=== PATIENT | female | born 1980 | race African-American/Black ===

== ENCOUNTER 2018-12-28 20:09 | Emergency (ER) | payer OTHER ==
[~2018-12-28] VITALS: Ht 170.2 cm; Wt 95.3 kg
--- OUTSIDE RECORDS SUMMARY | 2018-12-28 20:12 | XMS REPORT | Summary of Care ---
Author Author [facility] Organization [facility] Address Unknown Phone Unavailable Encounter ALMA Díaz(KIMANI) [id number] Date(s): 12/08/18 - 12/08/18 [facility] [address] [place] [address] [phone] Discharge Disposition: Home or Self Care Attending Physician: Mary Jo Alcocer MD Vital Signs Most recent to 1 oldest [Reference Range]: Height 170.18 cm (12/08/18 1:24 PM) Temperature Oral 98.4 DegF [96.4-99.1 DegF] (12/08/18 1:24 PM) Blood Pressure 95/67 mmHg [90-140/60-90 mmHg] (12/08/18 1:24 PM) Peripheral Pulse 80 bpm Rate [60-100 bpm] (12/08/18 1:24 PM) Weight 92.386 kg (12/08/18 1:24 PM) Body Mass Index 31.9 m2 (12/08/18 1:24 PM) Problem List Condition Effective Dates Status Health Status Informant Anxiety(Confirmed) Active Simple Active obesity(Confirmed) Allergies, Adverse Reactions, Alerts Substance Reaction Severity Status Vicodin Nausea Active Medications ALPRAZOLam 2 mg oral tablet See Instructions, take 1 tab po prn anxiety/panic attack, # 20 tab, 0 Refill(s) Start Date: 12/08/18 Status: Ordered cyclobenzaprine 10 mg oral tablet See Instructions, PRN for spasms, take 1 tab twice a day as needed for muscle sp asm/pain. MAY CAUSE DROWSINESS, # 30 tab, 0 Refill(s), Pharmacy: [facility] [id number] Start Date: 12/08/18 Status: Ordered escitalopram 20 mg oral tablet 20 mg=1 tab, PO, Daily, # 30 tab, 0 Refill(s), Pharmacy: [id number] Start Date: 12/08/18 Status: Ordered naproxen 500 mg oral tablet 500 mg=1 tab, PO, BID, PRN Pain, # 30 tab, 1 Refill(s), Pharmacy: [id number] [id number] Start Date: 12/08/18 Status: Ordered Results No data available for this section Immunizations No data available for this section Procedures Procedure Date Related Diagnosis Body Site Status Procedure1 Completed 1c-section x1 Social History Social History Type Response Smoking Status Current some day smoker; Type: Cigarettes; Exposure to Tobacco Smoke None; Cigarette Smoking Last 365 Days Yes; Reg Smoking Cessation Counseling Yes entered on: 12/08/18 Assessment and Plan No data available for this section
--- OUTSIDE RECORDS SUMMARY | 2018-12-28 20:12 | XMS REPORT | Summary of Care ---
Author Author [facility] Organization [facility] Address Unknown Phone Unavailable Encounter ALMA Díaz(KIMANI) [id number] Date(s): 12/26/18 - 12/26/18 [facility] [address] [place] [address]- Encounter Diagnosis Dysfunctional uterine bleeding (Discharge Diagnosis) - 12/26/18 Discharge Disposition: Home or Self Care Attending Physician: Brigido Gates MD Vital Signs Most recent to 1 2 oldest [Reference Range]: Height 170.18 cm (12/26/18 2:38 PM) Temperature Oral 98.1 DegF 99.8 DegF [96.4-99.1 DegF] (12/26/18 6:51 PM) *HI* (12/26/18 2:38 PM) Blood Pressure 106/65 mmHg 103/69 mmHg [90-140/60-90 mmHg] (12/26/18 6:51 PM) (12/26/18 2:38 PM) Respiratory Rate 17 BRMIN 18 BRMIN [14-20 BRMIN] (12/26/18 6:51 PM) (12/26/18 2:38 PM) Peripheral Pulse 68 bpm 95 bpm Rate [60-100 bpm] (12/26/18 6:51 PM) (12/26/18 2:38 PM) Weight 95.455 kg (12/26/18 2:38 PM) Body Mass Index 32.96 m2 (12/26/18 2:38 PM) Problem List Condition Effective Dates Status Health Status Informant Anxiety(Confirmed) Active Simple Active obesity(Confirmed) Allergies, Adverse Reactions, Alerts Substance Reaction Severity Status Vicodin Nausea Active Medications ketOROLAC 30 mg, 1 mL, Route: IVP, Drug form: INJ, ONCE, Dosing Weight 95.455, kg, Priorit y: STAT, Start date: 12/26/18 15:35:00 CDT, Stop date: 12/26/18 15:35:00 CDT Notes: (Same as:Toradol) IV bolus must be given >15 seconds. Give IM administration slowly and deeply into the muscle.Not for use > 4 days MEDICATION WASTE Product Size: 30 mgProduct Wasted: ___ mg Start Date: 12/26/18 Stop Date: 12/26/18 Status: Completed tramadol 50 mg oral tablet 50 mg=1 tab, PO, Q6H, PRN Pain, X 3 day, # 10 tab, 0 Refill(s) Start Date: 12/26/18 Stop Date: 12/29/18 Status: Ordered Results ELECTROLYTES Most recent to 1 oldest [Reference Range]: Sodium Lvl [135-145 141 mEq/L mEq/L] (12/26/18 2:46 PM) Potassium Lvl 4.0 mEq/L [3.5-5.1 mEq/L] (12/26/18 2:46 PM) Chloride Lvl [95-109 110 mEq/L mEq/L] *HI* (12/26/18 2:46 PM) CO2 [24-32 mEq/L] 24 mEq/L (12/26/18 2:46 PM) AGAP [10.0-20.0 11.0 mEq/L mEq/L] (12/26/18 2:46 PM) CHEM PANEL Most recent to 1 oldest [Reference Range]: Creatinine Lvl 0.78 mg/dL [0.50-1.40 mg/dL] (12/26/18 2:46 PM) eGFR 112 mL/min/1.73m2 1 *NA* (12/26/18 2:46 PM) BUN [7-22 mg/dL] 7 mg/dL (12/26/18 2:46 PM) Glucose Lvl [70-99 93 mg/dL mg/dL] (12/26/18 2:46 PM) Calcium Lvl 9.0 mg/dL [8.5-10.5 mg/dL] (12/26/18 2:46 PM) 1Result Comment: The eGFR is calculated using the CKD-EPI formula. In most young, healthy individuals the eGFR will be >90 mL/min/1.73m2. The eGFR declines with age. An eGFR of 60-89 may be normal in some populations, particularly the elderly, for whom the CKD-EPI formula has not been extensively validated. Use of the eGFR is not recommended in the following populations: Individuals with unstable creatinine concentrations, including patients and those with serious co-morbid conditions. Patients with extremes in muscle mass or diet. The data above are obtained from the National Kidney Disease Education Program ( NKDEP) which additionally recommends that when the eGFR is used in patients with extremes of body mass index for purposes of drug dosing, the eGFR should be mul tiplied by the estimated BMI. ENDOCRINOLOGY Most recent to 1 oldest [Reference Range]: S Preg [Negative] Negative *NA* (12/26/18 2:46 PM) HEMATOLOGY Most recent to 1 oldest [Reference Range]: WBC [3.7-10.4 K/CMM] 11.0 K/CMM *HI* (12/26/18 2:46 PM) RBC [4.20-5.40 4.60 M/CMM M/CMM] (12/26/18 2:46 PM) Hgb [12.0-16.0 g/dL] 14.6 g/dL (12/26/18 2:46 PM) Hct [36.0-48.0 %] 44.7 % (12/26/18 2:46 PM) MCV [80.0-98.0 fL] 97.1 fL (12/26/18 2:46 PM) MCH [27.0-31.0 pg] 31.6 pg *HI* (12/26/18 2:46 PM) MCHC [32.0-36.0 32.6 g/dL g/dL] (12/26/18 2:46 PM) RDW [11.5-14.5 %] 13.4 % (12/26/18 2:46 PM) MPV [7.4-10.4 fL] 7.7 fL (12/26/18 2:46 PM) Platelet [133-450 310 K/CMM K/CMM] (12/26/18 2:46 PM) Segs [45.0-75.0 %] 62.5 % (12/26/18 2:46 PM) Lymphocytes 28.9 % [20.0-40.0 %] (12/26/18 2:46 PM) Monocytes [2.0-12.0 6.3 % %] (12/26/18 2:46 PM) Eosinophils [0.0-4.0 0.9 % %] (12/26/18 2:46 PM) Basophils [0.0-1.0 1.4 % %] *HI* (12/26/18 2:46 PM) Neutrophils # 6.9 K/CMM [1.5-8.1 K/CMM] (12/26/18 2:46 PM) Lymphocytes # 3.2 K/CMM [1.0-5.5 K/CMM] (12/26/18 2:46 PM) Monocytes # [0.0-0.8 0.7 K/CMM K/CMM] (12/26/18 2:46 PM) Eosinophils # 0.1 K/CMM [0.0-0.5 K/CMM] (12/26/18 2:46 PM) Basophils # [0.0-0.2 0.2 K/CMM K/CMM] (12/26/18 2:46 PM) Immunizations No data available for this section Procedures Procedure Date Related Diagnosis Body Site Status Procedure1 Completed 1c-section x1 Social History Social History Type Response Smoking Status Current some day smoker; Type: Cigarettes; Exposure to Tobacco Smoke None; Cigarette Smoking Last 365 Days Yes; Reg Smoking Cessation Counseling Yes entered on: 12/26/18 Assessment and Plan No data available for this section
--- OUTSIDE RECORDS SUMMARY | 2018-12-28 20:12 | XMS REPORT | Summary of Care ---
Author Author JOSE DAVENPORT M.D. Organization Unknown Address [facility] Phone Unavailable Care Team Providers Care Animal Feeder Name Role Phone JOSE DAVENPORT M.D. Unavailable Unavailable CARMITA SIFUENTES M.D. Unavailable Unavailable JOSE SOLER MD Unavailable Unavailable Unavailable Unavailable Functional Status Name Dates Details Functional status health issues are not documented Status: Name Dates Details Cognitive status health issues are not documented Status: Problems Name Dates Details Missed (632, O02.1) Status: Active Vaginal discharge (623.5, N89.8) Status: Active Venereal disease screening (V74.5, Z11.3) Status: Active Anemia (285.9, D64.9) Status: Active Anxiety (300.00, F41.9) Status: Active Irregular intermenstrual bleeding (626.6, N92.1) Status: Active Fibroid, uterine (218.9, D25.9) Status: Active Follow up (V67.9, Z09) Status: Active Abnormal bleeding in menstrual cycle (626.9, N93.9) Status: Active Medications Name Dates Details Ferralet 90 90-1 MG Oral Tablet 1QD - TAKE ONE CAPSULE BY MOUTH EVERY DAY Quantity: 30 BEAR Abebe.Howie, CARMITA * Start : 03-Jul-2018 Active ALPRAZolam 0.5 MG Oral Tablet TAKE 1 TABLET AT BEDTIME NEEDED. * Quantity: 10 Refills: 0 ETHEL Stephenson, JOSE * Start : 26-Sep-2018 Active medroxyPROGESTERone Acetate 10 MG Oral Tablet take 1 tablet po daily * Quantity: 10 Refills: 0 JOSE DAVENPORT M.D. * Start : 23-Dec-2018 Active Allergies and Adverse Reactions Name Dates Details Vicodin TABS (Allergy) Status: Active Procedures Procedure Dates Details . [facility] - Affirm VPIII (BV Panel) Date: 23-Dec-2018 Immunization Name Dates Details Immunizations not documented Social History Name Dates Details - Status: Name Dates Details Current some day smoker Vital Signs Date Test Result Details [id number] BP Systolic 101 mm[Hg] Status: Comments: Location: [facility]; Position: Sitting BP Diastolic 69 mm[Hg] Status: Comments: Location: [facility]; Position: Sitting Height 67 in Status: Weight 224 lb Status: Body Mass Index Calculated 35.08 kg/m2 Status: Body Surface Area Calculated 2.12 m2 Status: Temperature 98.4 f Status: Comments: Method: Oral Heart Rate 73 /min Status: Results Date Description Value Details :49 [O] Urine Test (in office) Test, Urine Negative (Normal) Control Line Present? Yes (Normal) Test Lot# [id number] (Normal) :00 . [facility] - GC/Chlamydia Comments: Department of Pathology & Laboratory Medicine For: [facility] [address] [place] [address] [address] Phone: [phone] Email: [email or web address] [address] [email or web address] LMP: VPMTrichomonas~NegativeGardnerella~PositiveCandida~NegativeThe Affirm VPIII Microbial Identification Test for Rosa Maria species (C. albicans, C.glabrata, C. kefyr, C. krusei, C. parapsilosis, C. tropicalis) can detect 1 x 10(4) CFUof Rosa Maria species in log phase per assay, 2 x 10(5) CFU of G. vaginalis in log phase perassay and 5 x 10(3) , and trichomonads (T. vaginalis) per assay. A negative test resultdoes not exclude the possibility of vaginitis/vaginosis. As in many clinical situations,diagnosis should not be based on the results of a single laboratory test. Results shouldbe interpreted in conjunction with other clinical and laboratory data available to theclinician such as pH, amine odor, clue cells and vaginal discharge characteristics.Simultaneous infections by more than one organism are common.Disclaimer:Testing is performed using FDA-approved MarketRiders III Microbial Identification system,i.e., nucleic acid hybridization. The assay has been validated/verified by the [facility]. The performance of this test on patient specimens collected during or immediately afterantimicrobial therapy is unknown. The presence or absence of Rosa Maria species, G.vaginalis or T. vaginalis cannot be used as a test for therapeutic success or failure.Yoanna Iyer MD, PhD GC/ChlamydiaGC~NegativeChlamydia~Negative~Testing is performed using FDA-approved APTIMA COMBO 2 Assay on the [employer] system(i.e., Cartridge Filler-mediated amplification of rRNA followed by target- specifichybridization and dual kinetic fluorescence detection). This assay is designed for thedetection of Chlamydia trachomatis (CT) and Neisseria gonorrhoeae (GC) in femaleendocervical and vaginal, male urethral, and female and male urine specimens. CT/GCviability and/or infectivity can't be inferred from a positive test result since targetRNA may persist in the absence of infectious microorganisms. A negative test doesn'texclude the possibility of infection due to possible improper specimencollection/transport/handling (inadequate specimen collection), presence of inhibitor(s),concurrent antibiotic therapy, or presence of insufficient RNA for detection. The testresult must be interpreted in conjunction with other laboratory and clinical data. Theassay is not intended to replace cervical exams and endocervical specimens for diagnosisof female urogenital infections. The assay is not intended for the evaluation ofsuspected sexual abuse or for other medicao-legal indications. For those patients forwhom a false positive result may have adverse psycho-social impact, the CDC recommendsretesting. The assay has been validated by the [facility] [place] [facility] the [facility] Department of Pathology and Laboratory Medicine.Yoanna Iyer MD, PhD GC/Chlamydia REPORT Plan of Care Name Dates Details Planned Observations Planned Goals not documented Instructions Name Dates Details Instructions not documented Encounters Appointment; JOSE DAVENPORT M.D. Encounter Diagnosis: Problem not documented On: 20-May-2018 10:55 Appointment; JOSE DAVENPORT M.D. Encounter Diagnosis: Problem not documented On: 24-Jun-2018 10:00 Appointment; JOSE DAVENPORT M.D. Encounter Diagnosis: Problem not documented On: 19-Sep-2018 11:25 Appointment; JOSE DAVENPORT M.D. Encounter Diagnosis: Problem not documented On: 26-Sep-2018 10:10 Appointment; JOSE DAVENPORT M.D. Encounter Diagnosis: Problem not documented On: 23-Dec-2018 9:00
--- OUTSIDE RECORDS SUMMARY | 2018-12-28 20:12 | XMS REPORT | Summary of Care ---
Author Author [facility] Address Unknown Phone Unavailable Encounter ALMA Díaz(KIMANI) [id number] Date(s): 05/15/18 - 05/15/18 [facility] [address] [place] [address] [phone] Discharge Disposition: Home or Self Care Attending Physician: Mary Jo Alcocer MD Vital Signs Most recent to 1 oldest [Reference Range]: Height 170.18 cm (05/15/18 2:02 PM) Temperature Oral 98.6 DegF [96.4-99.1 DegF] (05/15/18 2:02 PM) Blood Pressure 114/75 mmHg [90-140/60-90 mmHg] (05/15/18 2:02 PM) Peripheral Pulse 75 bpm Rate [60-100 bpm] (05/15/18 2:02 PM) Weight 99.716 kg (05/15/18 2:02 PM) Body Mass Index 34.43 m2 (05/15/18 2:02 PM) Problem List Condition Effective Dates Status Health Status Informant Anxiety(Confirmed) Active Simple Active obesity(Confirmed) Allergies, Adverse Reactions, Alerts Substance Reaction Severity Status Vicodin Nausea Active Medications biotin PO, Daily, 750 mg, 0 Refill(s) Start Date: 05/15/18 Status: Ordered Xanax 2 mg oral tablet 2 mg=1 tab, PO, PRN Start Date: 05/15/18 Status: Ordered Results No data available for this section Immunizations No data available for this section Procedures Procedure Date Related Diagnosis Body Site Status Collection of venous blood by venipuncture 05/15/18 Completed Procedure1 Completed 1c-section x1 Social History Social History Type Response Smoking Status Current some day smoker; Type: Cigarettes; Exposure to Tobacco Smoke None; Cigarette Smoking Last 365 Days Yes; Reg Smoking Cessation Counseling Yes entered on: 11/13/18 Assessment and Plan No data available for this section
--- OUTSIDE RECORDS SUMMARY | 2018-12-28 20:12 | XMS REPORT | Summary of Care ---
Author Author [facility] Organization [facility] Address Unknown Phone Unavailable Encounter ALMA Díaz(KIMANI) [id number] Date(s): 12/24/18 - 12/24/18 [facility] [address] [place] [phone] Discharge Disposition: Home or Self Care Attending Physician: Mary Jo Alcocer MD Vital Signs Most recent to 1 oldest [Reference Range]: Height 170.18 cm (12/24/18 11:05 AM) Temperature Oral 99.0 DegF [96.4-99.1 DegF] (12/24/18 11:05 AM) Blood Pressure 102/70 mmHg [90-140/60-90 mmHg] (12/24/18 11:05 AM) Peripheral Pulse 81 bpm Rate [60-100 bpm] (12/24/18 11:05 AM) Weight 101.108 kg (12/24/18 11:05 AM) Body Mass Index 34.91 m2 (12/24/18 11:05 AM) Problem List Condition Effective Dates Status Health Status Informant Anxiety(Confirmed) Active Simple Active obesity(Confirmed) Allergies, Adverse Reactions, Alerts Substance Reaction Severity Status Vicodin Nausea Active Medications ALPRAZOLam 2 mg oral tablet See Instructions, take 1 tab po prn anxiety/panic attack, # 20 tab, 0 Refill(s) Start Date: 12/24/18 Status: Ordered azithromycin 250 mg oral tablet See Instructions, Take 2 tablets by mouth the first day then 1 tablet by mouth d aily on days 2-5., X 5 day, # 6 tab, 0 Refill(s), Pharmacy: [facility] [id number] Start Date: 12/24/18 Stop Date: 12/29/18 Status: Ordered codeine-guaiFENesin 10 mg-100 mg/5 mL oral syrup 10 mL, PO, Q4H, PRN for cough, X 7 day, # 180 mL, 0 Refill(s) Start Date: 12/24/18 Stop Date: 12/31/18 Status: Ordered Cymbalta 30 mg oral delayed release capsule 30 mg=1 cap, PO, Daily, # 30 cap, 0 Refill(s), Pharmacy: [facility] [id number] Start Date: 12/24/18 Status: Ordered Diflucan 150 mg oral tablet 150 mg=1 tab, PO, ONCE, # 1 tab, 0 Refill(s), Pharmacy: [id number] Start Date: 12/24/18 Status: Ordered Results No data available for [...]
--- OUTSIDE RECORDS SUMMARY | 2018-12-28 20:12 | XMS REPORT | Summary of Care ---
Author Author [facility] Address Unknown Phone Unavailable Encounter ALMA Díaz(KIMANI) [id number] Date(s): 05/13/18 - 05/13/18 [facility] [address] [place] [address] [phone] Discharge Disposition: Home or Self Care Attending Physician: Roderick Webb MD Vital Signs Most recent to 1 oldest [Reference Range]: Temperature Oral 98.4 DegF [96.4-99.1 DegF] (05/13/18 1:00 PM) Blood Pressure 105/72 mmHg [90-140/60-90 mmHg] (05/13/18 1:00 PM) Peripheral Pulse 63 bpm Rate [60-100 bpm] (05/13/18 1:00 PM) Weight 96.591 kg (05/13/18 1:00 PM) Problem List Condition Effective Dates Status Health Status Informant Anxiety(Confirmed) Active Simple Active obesity(Confirmed) Allergies, Adverse Reactions, Alerts Substance Reaction Severity Status Vicodin Nausea Active Medications Motrin 600 mg oral tablet 600 mg=1 tab, PO, Q6H, PRN Pain, take with food, # 30 tab, 0 Refill(s), Pharmacy : [facility] [id number] Start Date: 05/13/18 Stop Date: 05/20/18 Status: Completed progesterone 200 mg oral capsule 200 mg=1 cap, PO, Bedtime, X 12 day, # 12 cap, 0 Refill(s), Pharmacy: [facility] [id number] Start Date: 05/13/18 Stop Date: 05/25/18 Status: Completed Tylenol with Codeine #3 oral tablet 1 tab, PO, Q6H, PRN Pain, X 7 day, # 28 tab, 0 Refill(s) Start Date: 05/13/18 Stop Date: 05/20/18 Status: Completed Results ELECTROLYTES Most recent to 1 oldest [Reference Range]: POC Sodium [135-145 142 mEq/L mEq/L] (05/13/18 1:35 PM) POC Potassium 3.3 mEq/L [3.5-5.1 mEq/L] *LOW* (05/13/18 1:35 PM) POC Chloride [95-109 103 mEq/L mEq/L] (05/13/18 1:35 PM) POC Carbon Dioxide 24 mEq/dL [24-32 mEq/dL] (05/13/18 1:35 PM) POC AGAP [10.0-20.0 18.0 mEq/L mEq/L] (05/13/18 1:35 PM) CHEM PANEL Most recent to 1 oldest [Reference Range]: eGFR 110 mL/min/1.73m2 1 *NA* (05/13/18 1:35 PM) POC Creatinine 0.8 mg/dL [0.5-1.4 mg/dL] (05/13/18 1:35 PM) POC BUN [7-22 mg/dL] 5 mg/dL *LOW* (05/13/18 1:35 PM) POC Glucose [70-99 89 mg/dL mg/dL] (05/13/18 1:35 PM) POC Ion Ca 1.12 mMol/L [1.05-1.25 mMol/L] (05/13/18 1:35 PM) 1Result Comment: The eGFR is calculated [...] be mul tiplied by the estimated BMI. HEMATOLOGY Most recent to 1 oldest [Reference Range]: POC Hemoglobin 13.9 g/dL [12.0-16.0 g/dL] (05/13/18 1:35 PM) POC Hematocrit 41.0 % [36.0-48.0 %] (05/13/18 1:35 PM) Immunizations No data available for this [...]
--- OUTSIDE RECORDS SUMMARY | 2018-12-28 20:12 | XMS REPORT | Summary of Care ---
Author Author [facility] Organization [facility] Address Unknown Phone Unavailable Encounter ALMA Díaz(KIMANI) [id number] Date(s): 11/13/18 - 11/13/18 [facility] [address] [place] [address] [phone] Discharge Disposition: Home or Self Care Attending Physician: Mary Jo Alcocer MD Vital Signs Most recent to 1 oldest [Reference Range]: Temperature Oral 98.6 DegF [96.4-99.1 DegF] (11/13/18 10:19 AM) Blood Pressure 113/74 mmHg [90-140/60-90 mmHg] (11/13/18 10:19 AM) Peripheral Pulse 81 bpm Rate [60-100 bpm] (11/13/18 10:19 AM) Weight 99.347 kg (11/13/18 10:19 AM) Problem List Condition Effective Dates Status Health Status Informant Anxiety(Confirmed) Active Simple Active obesity(Confirmed) Allergies, Adverse Reactions, Alerts Substance Reaction Severity Status Vicodin Nausea Active Medications ALPRAZOLam 2 mg oral tablet See Instructions, take 1 tab po prn anxiety/panic attack, # 20 tab, 0 Refill(s) Start Date: 11/14/18 Status: Ordered escitalopram 10 mg oral tablet 10 mg=1 tab, PO, Daily, # 30 tab, 0 Refill(s), Pharmacy: [facility] [id number] Start Date: 11/13/18 Stop Date: 12/13/18 Status: Ordered Xanax 0.25 mg oral tablet See Instructions, PRN Anxiety, Stress, as, # 30 tab, 0 Refill(s) Start Date: 11/13/18 Status: Ordered Results No data available for [...]
--- OUTSIDE RECORDS SUMMARY | 2018-12-28 20:12 | XMS REPORT | Continuity of Care Document ---
Author Author [facility] Interface Address Unknown Phone Unavailable Problems Problem Status Onset Date Classification Date Reported Comments Source Dysfunctional uterine bleeding 12/26/2018 12/29/2018 [facility] VAGINAL BLEEDING Active 12/26/2018 [facility] VAGINAL BLEEDING Active 06/21/2018 [facility] Subserosal leiomyoma of uterus 05/21/2018 12/01/2018 [facility] Uterine fibroid 05/14/2018 12/01/2018 [facility] Vaginal bleeding 05/14/2018 12/01/2018 [facility] URINARY SYMPTOMS Active 05/14/2018 [facility] Nicotine dependence, cigarettes, uncomplicated 12/01/2018 [facility] Tobacco abuse counseling 12/01/2018 [facility] Allergy status to narcotic agent status 12/01/2018 [facility] Anxiety Active Problem 12/29/2018 [facility] Simple obesity Active Problem [facility]29[facility] Medications Medication Details Route Status Patient Instructions Ordering Provider Order Date Source tramadol hydrochloride 50 MG Oral Tablet 50 mg=1 tab, PO, Q6H, PRN Pain, X 3 day, # 10 tab, 0 Refill(s) Active 12/26/2018 [facility] Ketorolac 30 mg, 1 mL, Route: IVP, Drug form: INJ, ONCE, Dosing Weight 95.455, kg, Priority: STAT, Start date: 12/26/18 15:35:00 CDT, Stop date: 12/26/18 15:35:00 CDTNotes: (Same as:Toradol) IV bolus must be given >15 seconds. Give IM administration slowly and deeply into the muscle. Not for use > 4 days MEDICATION WASTE Product Size: 30 mg Product Wasted: ___ mg Inactive 12/26/2018 [facility] Codeine Phosphate 2 MG/ML / Guaifenesin 20 MG/ML Oral Solution 10 mL, PO, Q4H, PRN for cough, X 7 day, # 180 mL, 0 Refill(s) Active 12/24/2018 [facility] duloxetine 30 MG Enteric Coated Capsule [Cymbalta] 30 mg=1 cap, PO, Daily, # 30 cap, 0 Refill(s), [facility]: [facility] [id number] Active 12/24/2018 [facility] Fluconazole 150 MG Oral Tablet [Diflucan] 150 mg=1 tab, PO, ONCE, # 1 tab, 0 Refill(s), Pharmacy: [facility] [id number] Active 12/24/2018 [facility] azithromycin 250 mg oral tablet See Instructions, Take 2 tablets by mouth the first day then 1 tablet by mouth daily on days 2-5., X 5 day, # 6 tab, 0 Refill(s), Pharmacy: [facility] [id number] Active 12/24/2018 [facility] Alprazolam 2 MG Oral Tablet See Instructions, take 1 tab po prn anxiety/panic attack, # 20 tab, 0 Refill(s) Active 12/24/2018 [facility] Alprazolam 2 MG Oral Tablet See Instructions, take 1 tab po prn anxiety/panic attack, # 20 tab, 0 Refill(s) Active 12/08/2018 [facility] naproxen 500 mg oral tablet 500 mg=1 tab, PO, BID, PRN Pain, # 30 tab, 1 Refill(s), [id number] Active 12/08/2018 [facility] cyclobenzaprine 10 mg oral tablet See Instructions, PRN for spasms, take 1 tab twice a day as needed for muscle spasm/pain. MAY CAUSE DROWSINESS, # 30 tab, 0 Refill(s), [facility] [id number] Active 12/08/2018 [facility] escitalopram 20 mg oral tablet 20 mg=1 tab, PO, Daily, # 30 tab, 0 Refill(s), Pharmacy: [facility] [id number] Active 12/08/2018 [facility] Alprazolam 2 MG Oral Tablet See Instructions, take 1 tab po prn anxiety/panic attack, # 20 tab, 0 Refill(s) Active 11/14/2018 [facility] Alprazolam 0.25 MG Oral Tablet [Xanax] See Instructions, PRN Anxiety, Stress, as, # 30 tab, 0 Refill(s) Active 11/13/2018 [facility] escitalopram 10 mg oral tablet 10 mg=1 tab, PO, Daily, # 30 tab, 0 Refill(s), Pharmacy: [facility] [id number] Active 11/13/2018 [facility] Alprazolam 2 MG Oral Tablet [Xanax] 2 mg=1 tab, PO, PRN Active 05/15/2018 [facility] biotin PO, Daily, 750 mg, 0 Refill(s) Active 05/15/2018 [facility] Ibuprofen 400 MG Oral Tablet 400 mg=1 tab, PO, Q6H, PRN Pain or Fever, Take with food, X 7 day, # 28 tab, 0 Refill(s) No Longer Active 05/14/2018 [facility] Acetaminophen 300 MG / Codeine Phosphate 30 MG Oral Tablet [Tylenol with Codeine #3] 1 tab, PO, Q6H, PRN Pain, X 5 day, # 20 tab, 0 Refill(s) No Longer Active 05/14/2018 [facility] Zofran ODT 4 mg, 1 tab, Route: PO, Drug form: TABDIS, ONCE, Dosing Weight 86.364, kg, Priority: STAT, Start date: 05/14/18 8:59:00 CDT, Stop date: 05/14/18 8:59:00 CDTNotes: (Same as: Zofran ODT) Inactive 05/14/2018 [facility] NS (Bolus) IV 1,000 mL, 1,000 ml/hr, Infuse Over: 1 hr, Route: IV, 1,000, Drug form: INJ, ONCE, Priority: STAT, Dosing Weight 86.364 kg, Start date: 05/14/18 8:59:00 CDT, Stop date: 05/14/18 8:59:00 CDT Inactive 05/14/2018 [facility] Morphine 4 mg, 1 mL, Route: IVP, Drug form: SOLN, ONCE, Dosing Weight 86.364, kg, Priority: STAT, Start date: 05/14/18 8:59:00 CDT, Stop date: 05/14/18 8:59:00 CDTNotes: (Same as:MORPhine Sulfate) Inactive 05/14/2018 [facility] Acetaminophen 300 MG / Codeine Phosphate 30 MG Oral Tablet [Tylenol with Codeine #3] 1 tab, PO, Q6H, PRN Pain, X 7 day, # 28 tab, 0 Refill(s) No Longer Active 05/13/2018 [facility] Motrin 600 mg oral tablet 600 mg=1 tab, PO, Q6H, PRN Pain, take with food, # 30 tab, 0 Refill(s), Pharmacy: [facility] [id number] No Longer Active 05/13/2018 [facility] progesterone 200 mg oral capsule 200 mg=1 cap, PO, Bedtime, X 12 day, # 12 cap, 0 Refill(s), Pharmacy: [facility] [id number] No Longer Active 05/13/2018 [facility] Allergies, Adverse Reactions, Alerts Substance Category Reaction Severity Reaction type Status Date Reported Comments Source Vicodin Assertion Nausea Drug allergy Active [facility] Immunizations Immunization Date Given Site Status Last Updated Comments Source Results Order Name Results Value Reference Range Date Interpretation Comments Source CHEM PANEL eGFR 112 mL/min/1.73m2 12/26/2018 Result Comment: The eGFR is calculated using the [...] from the National Kidney Disease Education Program (NKDEP) which additionally recommends that when the eGFR is used in patients with extremes of body mass index for purposes of drug dosing, the eGFR should be multiplied by the estimated BMI. [facility] CHEM PANEL Glucose Lvl 93 mg/dL 70 - 99 12/26/2018 [facility] CHEM PANEL Calcium Lvl 9.0 mg/dL 8.5 - 10.5 12/26/2018 [facility] CHEM PANEL BUN 7 mg/dL 7 - 22 12/26/2018 [facility] CHEM PANEL CO2 24 meq/L 24 - 32 12/26/2018 [facility] CHEM PANEL Chloride Lvl 110 meq/L 95 - 109 12/26/2018 [facility] CHEM PANEL Creatinine Lvl 0.78 mg/dL 0.50 - 1.40 12/26/2018 [facility] CHEM PANEL Potassium Lvl 4.0 meq/L 3.5 - 5.1 12/26/2018 [facility] CHEM PANEL Sodium Lvl 141 meq/L 135 - 145 12/26/2018 [facility] CHEM PANEL AGAP 11.0 meq/L 10.0 - 20.0 12/26/2018 [facility] ENDOCRINOLOGY S Preg Negative *NA* (12/26/18 2:46 PM) Negative 12/26/2018 [facility] MPV 7.7 fL 7.4 - 10.4 12/26/2018 [facility] RBC 4.60 M/CMM 4.20 - 5.40 12/26/2018 [facility] MCHC 32.6 g/dL 32.0 - 36.0 12/26/2018 [facility] WBC 11.0 K/CMM 3.7 - 10.4 12/26/2018 [facility] Hgb 14.6 g/dL 12.0 - 16.0 12/26/2018 [facility] Hct 44.7 % 36.0 - 48.0 12/26/2018 [facility] MCV 97.1 fL 80.0 - 98.0 12/26/2018 [facility] MCH 31.6 pg 27.0 - 31.0 12/26/2018 [facility] RDW 13.4 % 11.5 - 14.5 12/26/2018 [facility] Platelet 310 K/CMM 133 - 450 12/26/2018 [facility] Eosinophils # 0.1 K/CMM 0.0 - 0.5 12/26/2018 [facility] Basophils # 0.2 K/CMM 0.0 - 0.2 12/26/2018 [facility] Neutrophils # 6.9 K/CMM 1.5 - 8.1 12/26/2018 [facility] Basophils 1.4 % 0.0 - 1.0 12/26/2018 [facility] Eosinophils 0.9 % 0.0 - 4.0 12/26/2018 [facility] Monocytes # 0.7 K/CMM 0.0 - 0.8 12/26/2018 [facility] Monocytes 6.3 % 2.0 - 12.0 12/26/2018 [facility] Lymphocytes # 3.2 K/CMM 1.0 - 5.5 12/26/2018 [facility] Segs 62.5 % 45.0 - 75.0 12/26/2018 [facility] Lymphocytes 28.9 % 20.0 - 40.0 12/26/2018 [facility] Pelvis w Transvag and Pelvis Doppler US Pelvis w Transvag and Pelvis Doppler US Patient Name: PAUL SEO : 81; Age: 38 years y/o Female MR: [id number] Study: Pelvis w Transvag and Pelvis Doppler US 12/26/18 3:35 PM CDT Ordering Physician: Maia Garland Clinical Indication: - heavy bleeding, hx fibroids; Please note this report is based on understanding pt is not , please call to discuss if this information is incorrect. Comparison: 05/14/18 US PELVIS Technique: Grayscale, color and Doppler transabdominal and transvaginal imaging of the pelvis was performed with standard technique. Transvaginal images were obtained due to limited visualization transabdominally. FINDINGS: Ultrasound evaluation demonstrates the uterus to measure 5.8 cm in greatest dimension. A 1.3cm subserosal fibroid noted. The endometrial stripe measures 8 mm in thickness. OVARIES: The right ovary measures 6.2 cm. Simple appearing cysts noted, largest 4.0cm. Follow up recommended. The left ovary measures 2.6 cm. Arterial and venous flow demonstrated bilaterally. There is no evidence of torsion. Adnexa are otherwise unremarkable. OTHER FINDINGS: There is no significant free fluid. IMPRESSION: Right ovarian cysts and small fibroid, otherwise no acute pathology appreciated. Follow up recommended if ongoing clinical concern. SL: DANIA 12/26/2018 - - Read by: Chasidy Vasquez MD Dictated Date/time: 12/26/18 18:05 Electronically Signed by: Chasidy Vasquez MD 12/26/18 18:18 FINAL REPORT [facility] < 14 weeks single gestation US < 14 weeks single gestation US Study: < 14 weeks single gestation US 06/21/2018 12:40 PM CDT Clinical Indication: - vaginal bleeding, unknown age, doppler please; Comparison: None TECHNIQUE: Sonographic evaluation of pelvis is performed utilizing high resolution B-mode imaging, along with pulse and color Doppler imaging. FINDINGS: TRANSABDOMINAL PELVIC ULTRASOUND: Uterus measures 8.8 x 4.1 x 5.3 cm. Endometrium measures 6 mm without focal intrauterine cystic collection. Along the anterior body, 1.1 cm intramural hypoechoic solid-appearing mass. Right ovary measures 2.1 x 1.7 x 1.2 cm. Ovarian echogenicity and architecture are within normal limits without adnexal abnormality. Left ovary measures 2.3 x 1.7 x 1.9 cm. Ovarian echogenicity and architecture are within normal limits without adnexal abnormality. TRANSVAGINAL PELVIC ULTRASOUND: Transvaginal imaging is used for better evaluation of the endometrium and adnexal regions. No pelvic free fluid. Uterus measures 8.8 x 4.3 x 5.2 seen. Endometrium measures 4 mm without focal intrauterine cystic collection. Right ovary measures 2.5 x 2.2 x 1.9 cm with arterial flow. Ovarian echogenicity and architecture are within normal limits. [place]wall right paraovarian cyst with low-level internal echoes measuring 2.2 x 1.6 x 1.4 cm. Left ovary measures 2.5 x 2 x 1.6 cm with arterial flow. Ovarian echogenicity and architecture are within normal limits without adnexal abnormality. IMPRESSION: 1. No IUP is identified. 2. Right adnexal cyst. Small uterine fibroid. Otherwise, negative SL: ERASTO 06/21/2018 - - Read by: Truman Rg MD Dictated Date/time: 06/21/18 13:26 Electronically Signed by: Truman Rg MD 06/21/18 13:31 FINAL REPORT [facility] ELECTROLYTES AGAP 11.3 meq/L 10.0 - 20.0 05/14/2018 [facility] ELECTROLYTES B/C Ratio 10 6 - 25 05/14/2018 [facility] ELECTROLYTES Globulin 3.6 g/dL 2.7 - 4.2 05/14/2018 [facility] ELECTROLYTES A/G Ratio 0.9 0.7 - 1.6 05/14/2018 [facility] ELECTROLYTES eGFR 97 mL/min/1.73m2 05/14/2018 Result Comment: The eGFR is calculated using the [...] from the National Kidney Disease Education Program (NKDEP) which additionally recommends that when the eGFR is used in patients with extremes of body mass index for purposes of drug dosing, the eGFR should be multiplied by the estimated BMI. [facility] ELECTROLYTES Calcium Lvl 8.8 mg/dL 8.5 - 10.5 05/14/2018 [facility] ELECTROLYTES Total Protein 7.0 g/dL 6.4 - 8.4 05/14/2018 [facility] ELECTROLYTES ALT 52 unit/L 0 - 65 05/14/2018 [facility] ELECTROLYTES Albumin Lvl 3.4 g/dL 3.5 - 5.0 05/14/2018 [facility] ELECTROLYTES AST 94 unit/L 0 - 37 05/14/2018 [facility] ELECTROLYTES Alk Phos 65 unit/L 39 - 136 05/14/2018 [facility] ELECTROLYTES Bili Total 0.3 mg/dL 0.2 - 1.3 05/14/2018 [facility] ELECTROLYTES CO2 29 meq/L 24 - 32 05/14/2018 [facility] ELECTROLYTES Sodium Lvl 145 meq/L 135 - 145 05/14/2018 [facility] ELECTROLYTES Potassium Lvl 3.3 meq/L 3.5 - 5.1 05/14/2018 [facility] ELECTROLYTES Chloride Lvl 108 meq/L 95 - 109 05/14/2018 [facility] ELECTROLYTES Glucose Lvl 84 mg/dL 70 - 99 05/14/2018 [facility] ELECTROLYTES BUN 9 mg/dL 7 - 22 05/14/2018 [facility] ELECTROLYTES Creatinine Lvl 0.89 mg/dL 0.50 - 1.40 05/14/2018 [facility] ENDOCRINOLOGY hCG Tot null 05/14/2018 [facility] MPV 8.0 fL 7.4 - 10.4 05/14/2018 [facility] RBC 4.54 M/CMM 4.20 - 5.40 05/14/2018 [facility] Hgb 14.8 g/dL 12.0 - 16.0 05/14/2018 [facility] HEMATOLOGY RDW 13.8 % 11.5 - 14.5 05/14/2018 [facility] HEMATOLOGY Platelet 264 K/CMM 133 - 450 05/14/2018 [facility] WBC 11.9 K/CMM 3.7 - 10.4 05/14/2018 [facility] Hct 43.7 % 36.0 - 48.0 05/14/2018 [facility] MCH 32.6 pg 27.0 - 31.0 05/14/2018 [facility] HEMATOLOGY MCV 96.3 fL 80.0 - 98.0 05/14/2018 [facility] HEMATOLOGY MCHC 33.9 g/dL 32.0 - 36.0 05/14/2018 [facility] HEMATOLOGY Neutrophils # 6.7 K/CMM 1.5 - 8.1 05/14/2018 [facility] HEMATOLOGY Basophils 1.1 % 0.0 - 1.0 05/14/2018 [facility] HEMATOLOGY Monocytes # 0.9 K/CMM 0.0 - 0.8 05/14/2018 [facility] HEMATOLOGY Lymphocytes # 3.9 K/CMM 1.0 - 5.5 05/14/2018 [facility] HEMATOLOGY Eosinophils # 0.2 K/CMM 0.0 - 0.5 05/14/2018 [facility] HEMATOLOGY Lymphocytes 33.1 % 20.0 - 40.0 05/14/2018 [facility] HEMATOLOGY Segs 56.2 % 45.0 - 75.0 05/14/2018 [facility] Eosinophils 1.7 % 0.0 - 4.0 05/14/2018 [facility] HEMATOLOGY Monocytes 7.9 % 2.0 - 12.0 05/14/2018 [facility] Basophils # 0.1 K/CMM 0.0 - 0.2 05/14/2018 [facility] URINE AND STOOL UA Urobilinogen <=1.0 mg/dL 0.1 - 1.0 05/14/2018 [facility] URINE AND STOOL UA Color Red 05/14/2018 [facility] URINE AND STOOL UA Sq Epi Many /LPF Few /LPF 05/14/2018 [facility] URINE AND STOOL UA Mucus Few /LPF None Seen /LPF 05/14/2018 [facility] URINE AND STOOL UA RBC null 0 - 2 05/14/2018 [facility] URINE AND STOOL UA Nitrite Negative (05/14/18 8:14 AM) Negative 05/14/2018 [facility] URINE AND STOOL UA Leuk Est Small *ABN* (05/14/18 8:14 AM) Negative 05/14/2018 [facility] URINE AND STOOL UA Bili Negative *NA* (05/14/18 8:14 AM) Negative 05/14/2018 [facility] URINE AND STOOL UA Blood Large *ABN* (05/14/18 8:14 AM) Negative 05/14/2018 [facility] URINE AND STOOL UA Glucose Negative mg/dL Negative mg/dL 05/14/2018 [facility] URINE AND STOOL UA Ketones Negative mg/dL Negative mg/dL 05/14/2018 [facility] URINE AND STOOL UA Protein 100 mg/dL Negative mg/dL 05/14/2018 [facility] URINE AND STOOL UA pH 6.0 5.0 - 8.0 05/14/2018 [facility] URINE AND STOOL UA Spec Grav 1.013 <=1.030 05/14/2018 [facility] URINE AND STOOL UA Turbidity Marked *ABN* (05/14/18 8:14 AM) Clear 05/14/2018 [facility] URINE CHEM U Preg See Note 1 (05/14/18 8:14 AM) Negative 05/14/2018 Result Comment: Urine test is inconclusive. Please order serum test. Notified Nguyễn Cline RN at 05/14/2018 08:29. sm [facility] Culture: Urine 50,000 - 100,000 CFU/mL Skin Heather 05/14/2018 [facility] Pelvis w Transvag and Pelvis Doppler US Pelvis w Transvag and Pelvis Doppler US TRANSABDOMINAL TRANSVAGINAL PELVIC ULTRASOUND. HISTORY: Heavy vaginal bleeding. Nausea and vomiting COMPARISON: No priors available. TRANSABDOMINAL IMAGES: The uterus is 9.8 x 4.3 x 4.8 cm. The endometrial stripe is 9 mm thick and appears homogeneous on transabdominal images. There is a subtle rounded slightly hypoechoic structure subserosal region uterine fundus measuring 1.8 x 0.8 x 1.6 cm and most likely representing a fibroid. The left ovary is 2.7 x 1.6 x 2.2 cm. Right ovary not definitely identified. No pelvic fluid collections. Urinary bladder not visualized. Transvaginal imaging will be performed to better evaluate the ovaries and endometrial stripe. TRANSVAGINAL IMAGES: On transvaginal images the endometrial stripe is 11 mm thick and homogeneous. The subserosal fibroid is again noted and is 1.9 x 1.6 x 1.4 cm on the transvaginal images. The right ovary is 2.9 x 1.5 x 2.1 cm. The left ovary is 2.5 x 1.8 x 2.4 cm. There is blood flow to each ovary on Doppler ultrasound images. There is no free pelvic fluid. IMPRESSION: 1. 1.9 cm greatest diameter subserosal fibroid. Otherwise normal uterus and endometrial stripe. 2. Normal ovaries. END IMPRESSION SL: [id number] 05/14/2018 - - Read by: Del James MD Dictated Date/time: 05/14/18 09:49 Electronically Signed by: Del James MD 05/14/18 09:53 FINAL REPORT [facility] CHEM [facility] eGFR 110 mL/min/1.73m2 05/13/2018 Result Comment: The eGFR is calculated using the [...] from the National Kidney Disease Education Program (NKDEP) which additionally recommends that when the eGFR is used in patients with extremes of body mass index for purposes of drug dosing, the eGFR should be multiplied by the estimated BMI. [facility] CHEM PANEL POC Carbon Dioxide 24 mEq/dL 24 - 32 05/13/2018 [facility] CHEM PANEL POC Chloride 103 meq/L 95 - 109 05/13/2018 [facility] CHEM PANEL POC Potassium 3.3 meq/L 3.5 - 5.1 05/13/2018 [facility] CHEM PANEL POC Sodium 142 meq/L 135 - 145 05/13/2018 [facility] CHEM PANEL POC Ion Ca 1.12 mMol/L 1.05 - 1.25 05/13/2018 [facility] CHEM PANEL POC Creatinine 0.8 mg/dL 0.5 - 1.4 05/13/2018 [facility] CHEM PANEL POC Hemoglobin 13.9 g/dL 12.0 - 16.0 05/13/2018 [facility] CHEM PANEL POC Glucose 89 mg/dL 70 - 99 05/13/2018 [facility] CHEM PANEL POC BUN 5 mg/dL 7 - 22 05/13/2018 [facility] CHEM PANEL POC Hematocrit 41.0 % 36.0 - 48.0 05/13/2018 [facility] CHEM PANEL POC AGAP 18.0 meq/L 10.0 - 20.0 05/13/2018 [facility] Vital Signs Vital Sign Value Date Comments Source Systolic (mm Hg) 106 12/26/2018 [facility] Diastolic (mm Hg) 65 12/26/2018 [facility] Respitory Rate 17 12/26/2018 [facility] Heart Rate 68 12/26/2018 [facility] Temperature Oral (F) 98.1 F 12/26/2018 [facility] BMI Calculated 32.96 12/26/2018 [facility] Height 170.18 cm 12/26/2018 [facility] Weight 95.455 12/26/2018 [facility] Respitory Rate 18 12/26/2018 [facility] Heart Rate 95 12/26/2018 [facility] Temperature Oral (F) 99.8 F 12/26/2018 [facility] Systolic (mm Hg) 103 12/26/2018 [facility] Diastolic (mm Hg) 69 12/26/2018 [facility] Height 170.18 cm 12/24/2018 [facility] BMI Calculated 34.91 12/24/2018 [facility] Weight 101.108 12/24/2018 [facility] Heart Rate 81 12/24/2018 [facility] Systolic (mm Hg) 102 12/24/2018 [facility] Diastolic (mm Hg) 70 12/24/2018 [facility] Temperature Oral (F) 99.0 F 12/24/2018 [facility] Height 170.18 cm 12/08/2018 [facility] BMI Calculated 31.9 12/08/2018 [facility] Weight 92.386 12/08/2018 [facility] Heart Rate 80 12/08/2018 [facility] Systolic (mm Hg) 95 12/08/2018 [facility] Diastolic (mm Hg) 67 12/08/2018 [facility] Temperature Oral (F) 98.4 F 12/08/2018 [facility] Weight 99.347 11/13/2018 [facility] Systolic (mm Hg) 113 11/13/2018 [facility] Diastolic (mm Hg) 74 11/13/2018 [facility] Heart Rate 81 11/13/2018 [facility] Temperature Oral (F) 98.6 F 11/13/2018 [facility] Height 170.18 cm 05/15/2018 [facility] BMI Calculated 34.43 05/15/2018 [facility] Weight 99.716 05/15/2018 [facility] Heart Rate 75 05/15/2018 [facility] Systolic (mm Hg) 114 05/15/2018 [facility] Diastolic (mm Hg) 75 05/15/2018 [facility] Temperature Oral (F) 98.6 F 05/15/2018 [facility] Temperature Oral (F) 98.4 F 05/14/2018 [facility] Respitory Rate 18 05/14/2018 [facility] Heart Rate 58 05/14/2018 [facility] Systolic (mm Hg) 110 05/14/2018 [facility] Diastolic (mm Hg) 67 05/14/2018 [facility] BMI Calculated 29.82 05/14/2018 [facility] Weight 86.364 05/14/2018 [facility] Height 170.18 cm 05/14/2018 [facility] Systolic (mm Hg) 103 05/14/2018 [facility] Diastolic (mm Hg) 67 05/14/2018 [facility] Heart Rate 74 05/14/2018 [facility] Temperature Oral (F) 97.9 F 05/14/2018 [facility] Respitory Rate 18 05/14/2018 [facility] Weight 96.591 05/13/2018 [facility] Heart Rate 63 05/13/2018 [facility] Temperature Oral (F) 98.4 F 05/13/2018 [facility] Systolic (mm Hg) 105 05/13/2018 [facility] Diastolic (mm Hg) 72 05/13/2018 [facility] Encounters Location Location Details Encounter Type Encounter Number Reason For Visit Attending Provider ADM Date DC Date Status Source Outpatient [id number] [facility] 05/13/2018 [facility] [place] [facility] [id number] [facility] 05/13/2018 05/14/2018 Medical [facility] Emergency [id number] Soy Armenta 05/14/2018 05/14/2018 [facility] Outpatient [id number] MARY JO HILL 05/15/2018 [facility] [place] Outpatient [id number] Mary Jo Hill 05/15/2018 05/16/2018 [facility] Outpatient [id number] MARY JO HILL 11/13/2018 [facility] [place] Outpatient [id number] Mary Jo Hill 11/13/2018 11/14/2018 [facility] Outpatient [id number] MARY JO HILL 12/08/2018 [facility] [place] Outpatient [id number] Mary Jo Hill 12/08/2018 12/09/2018 [facility] Outpatient [id number] Mary Jo Hill 12/24/2018 Active [facility] [place] Outpatient [id number] Mary Jo Hill 12/24/2018 12/25/2018 [facility] Emergency [id number] Brigido Gates 12/26/2018 12/26/2018 [facility] Outpatient [id number] JESSICA CRUZ 01/08/2019 Active [facility] Outpatient [id number] Mary Jo Hill 01/19/2019 Active [facility] Procedures Procedure Code Date Perfomer Comments Source Collection of venous blood by venipuncture 30186 05/15/2018 [facility] Procedure<sup>1</sup> [id number] x1 [facility] Procedure<sup>1</sup> [id number] x1 [facility]
--- OUTSIDE RECORDS SUMMARY | 2018-12-28 20:12 | XMS REPORT | Summary of Care ---
Author Author [facility] Organization [facility] Address Unknown Phone Unavailable Encounter HQ Bre(FIN) [id number] Date(s): 05/14/18 - 05/14/18 [facility] [address] [place] [address]- Encounter Diagnosis Uterine fibroid (Discharge Diagnosis) - 05/14/18 Vaginal bleeding (Discharge Diagnosis) - 05/14/18 Subserosal leiomyoma of uterus (Final) - 05/20/18 Nicotine dependence, cigarettes, uncomplicated (Final) - Tobacco abuse counseling (Final) - Allergy status to narcotic agent status (Final) - Discharge Disposition: Home or Self Care Attending Physician: Soy Armenta MD Vital Signs Most recent to 1 2 oldest [Reference Range]: Height 170.18 cm (05/14/18 6:44 AM) Temperature Oral 98.4 DegF 97.9 DegF [96.4-99.1 DegF] (05/14/18 10:32 AM) (05/14/18 6:44 AM) Blood Pressure 110/67 mmHg 103/67 mmHg [90-140/60-90 mmHg] (05/14/18 10:32 AM) (05/14/18 6:44 AM) Respiratory Rate 18 BRMIN 18 BRMIN [14-20 BRMIN] (05/14/18 10:32 AM) (05/14/18 6:44 AM) Peripheral Pulse 58 bpm 74 bpm Rate [60-100 bpm] *LOW* (05/14/18 6:44 AM) (05/14/18 10:32 AM) Weight 86.364 kg (05/14/18 6:44 AM) Body Mass Index 29.82 m2 (05/14/18 6:44 AM) Problem List Condition Effective Dates Status Health Status Informant Anxiety(Confirmed) Active Simple Active obesity(Confirmed) Allergies, Adverse Reactions, Alerts Substance Reaction Severity Status Vicodin Nausea Active Medications ibuprofen 400 mg oral tablet 400 mg=1 tab, PO, Q6H, PRN Pain or Fever, Take with food, X 7 day, # 28 tab, 0 R efill(s) Start Date: 05/14/18 Stop Date: 05/21/18 Status: Completed morphine Sulfate 4 mg, 1 mL, Route: IVP, Drug form: SOLN, ONCE, Dosing Weight 86.364, kg, Priorit y: STAT, Start date: 05/14/18 8:59:00 CDT, Stop date: 05/14/18 8:59:00 CDT Notes: (Same as:MORPhine Sulfate) Start Date: 05/14/18 Stop Date: 05/14/18 Status: Completed NS (Bolus) IV 1,000 mL, 1,000 ml/hr, Infuse Over: 1 hr, Route: IV, 1,000, Drug form: INJ, ONCE , Priority: STAT, Dosing Weight 86.364 kg, Start date: 05/14/18 8:59:00 CDT, Sto p date: 05/14/18 8:59:00 CDT Start Date: 05/14/18 Stop Date: 05/14/18 Status: Completed Tylenol with Codeine #3 oral tablet 1 tab, PO, Q6H, PRN Pain, X 5 day, # 20 tab, 0 Refill(s) Start Date: 05/14/18 Stop Date: 05/19/18 Status: Completed Zofran ODT 4 mg, 1 tab, Route: PO, Drug form: TABDIS, ONCE, Dosing Weight 86.364, kg, Prior ity: STAT, Start date: 05/14/18 8:59:00 CDT, Stop date: 05/14/18 8:59:00 CDT Notes: (Same as: Zofran ODT) Start Date: 05/14/18 Stop Date: 05/14/18 Status: Completed Results ELECTROLYTES Most recent to 1 oldest [Reference Range]: Sodium Lvl [135-145 145 mEq/L mEq/L] (05/14/18 8:14 AM) Potassium Lvl 3.3 mEq/L [3.5-5.1 mEq/L] *LOW* (05/14/18 8:14 AM) Chloride Lvl [95-109 108 mEq/L mEq/L] (05/14/18 8:14 AM) CO2 [24-32 mEq/L] 29 mEq/L (05/14/18 8:14 AM) AGAP [10.0-20.0 11.3 mEq/L mEq/L] (05/14/18 8:14 AM) CHEM PANEL Most recent to 1 oldest [Reference Range]: Creatinine Lvl 0.89 mg/dL [0.50-1.40 mg/dL] (05/14/18 8:14 AM) eGFR 97 mL/min/1.73m2 1 *NA* (05/14/18 8:14 AM) BUN [7-22 mg/dL] 9 mg/dL (05/14/18 8:14 AM) B/C Ratio [6-25] 10 (05/14/18 8:14 AM) Glucose Lvl [70-99 84 mg/dL mg/dL] (05/14/18 8:14 AM) Total Protein 7.0 g/dL [6.4-8.4 g/dL] (05/14/18 8:14 AM) Albumin Lvl [3.5-5.0 3.4 g/dL g/dL] *LOW* (05/14/18 8:14 AM) Globulin [2.7-4.2 3.6 g/dL g/dL] (05/14/18 8:14 AM) A/G Ratio [0.7-1.6] 0.9 (05/14/18 8:14 AM) Calcium Lvl 8.8 mg/dL [8.5-10.5 mg/dL] (05/14/18 8:14 AM) ALT [0-65 unit/L] 52 unit/L (05/14/18 8:14 AM) AST [0-37 unit/L] 94 unit/L *HI* (05/14/18 8:14 AM) Alk Phos [39-136 65 unit/L unit/L] (05/14/18 8:14 AM) Bili Total [0.2-1.3 0.3 mg/dL mg/dL] (05/14/18 8:14 AM) 1Result Comment: The eGFR is calculated using [...] Most recent to 1 oldest [Reference Range]: hCG Tot <1 mIU/mL *NA* (05/14/18 8:14 AM) URINE CHEM Most recent to 1 oldest [Reference Range]: U Preg [Negative] See Note 1 (05/14/18 8:14 AM) 1Result Comment: Urine test is inconclusive. Please order serum test. Notified Nguyễn Cline RN at 05/14/2018 08:29. sm URINE AND STOOL Most recent to 1 oldest [Reference Range]: UA Turbidity [Clear] Marked *ABN* (05/14/18 8:14 AM) UA Color Red *NA* (05/14/18 8:14 AM) UA pH [5.0-8.0] 6.0 (05/14/18 8:14 AM) UA Spec Grav 1.013 [<=1.030] (05/14/18 8:14 AM) UA Glucose [Negative Negative mg/dL mg/dL] *NA* (05/14/18 8:14 AM) UA Blood [Negative] Large *ABN* (05/14/18 8:14 AM) UA Ketones [Negative Negative mg/dL mg/dL] *NA* (05/14/18 8:14 AM) UA Protein [Negative 100 mg/dL mg/dL] *ABN* (05/14/18 8:14 AM) UA Urobilinogen <=1.0 mg/dL [0.1-1.0 mg/dL] *NA* (05/14/18 8:14 AM) UA Bili [Negative] Negative *NA* (05/14/18 8:14 AM) UA Leuk Est Small [Negative] *ABN* (05/14/18 8:14 AM) UA Nitrite Negative [Negative] (05/14/18 8:14 AM) UA RBC [0-2 /HPF] >182 /HPF *HI* (05/14/18 8:14 AM) UA Sq Epi [Few /LPF] Many /LPF *ABN* (05/14/18 8:14 AM) UA Mucus [None Seen Few /LPF /LPF] *NA* (05/14/18 8:14 AM) HEMATOLOGY Most recent to 1 oldest [Reference Range]: WBC [3.7-10.4 K/CMM] 11.9 K/CMM *HI* (05/14/18 8:14 AM) RBC [4.20-5.40 4.54 M/CMM M/CMM] (05/14/18 8:14 AM) Hgb [12.0-16.0 g/dL] 14.8 g/dL (05/14/18 8:14 AM) Hct [36.0-48.0 %] 43.7 % (05/14/18 8:14 AM) MCV [80.0-98.0 fL] 96.3 fL (05/14/18 8:14 AM) MCH [27.0-31.0 pg] 32.6 pg *HI* (05/14/18 8:14 AM) MCHC [32.0-36.0 33.9 g/dL g/dL] (05/14/18 8:14 AM) RDW [11.5-14.5 %] 13.8 % (05/14/18 8:14 AM) MPV [7.4-10.4 fL] 8.0 fL (05/14/18 8:14 AM) Platelet [133-450 264 K/CMM K/CMM] (05/14/18 8:14 AM) Segs [45.0-75.0 %] 56.2 % (05/14/18 8:14 AM) Lymphocytes 33.1 % [20.0-40.0 %] (05/14/18 8:14 AM) Monocytes [2.0-12.0 7.9 % %] (05/14/18 8:14 AM) Eosinophils [0.0-4.0 1.7 % %] (05/14/18 8:14 AM) Basophils [0.0-1.0 1.1 % %] *HI* (05/14/18 8:14 AM) Neutrophils # 6.7 K/CMM [1.5-8.1 K/CMM] (05/14/18 8:14 AM) Lymphocytes # 3.9 K/CMM [1.0-5.5 K/CMM] (05/14/18 8:14 AM) Monocytes # [0.0-0.8 0.9 K/CMM K/CMM] *HI* (05/14/18 8:14 AM) Eosinophils # 0.2 K/CMM [0.0-0.5 K/CMM] (05/14/18 8:14 AM) Basophils # [0.0-0.2 0.1 K/CMM K/CMM] (05/14/18 8:14 AM) Microbiology Reports TEST: Culture: Urine STATUS: Auth (Verified) BODY SITE: SOURCE: Urine, Clean Catch COLLECTED DATE/TIME: 05/14/18 8:14 AM FINAL REPORT 50,000 - 100,000 CFU/mL Skin Heather Immunizations No data available for this section [...]
[2018-12-28] MEDS ORDERED: SODIUM CHLORIDE 0.9% 1000ML 1,000 ML IV STA (20:50)
[2018-12-28] MEDS ORDERED: ACETAMINOPHEN 325 MG TAB PO ONE (21:00)
[2018-12-28] MEDS ORDERED: ONDANSETRON HCL INJ 2MG/ML 2ML 2 MG/ML VIAL IV ONE (21:00)
[2018-12-28] MEDS ORDERED: KETOROLAC TROMETHAMINE 30 MG/ML VIAL IV ONE (21:00)
[2018-12-28 21:45] VITALS: BP 117/73
== END 2018-12-28 22:21 | disposition home or self-care (01) ==
LOC: FSED 20:09
DX: R10.2 Pelvic and perineal pain (principal); N92.0 Excessive and frequent menstruation with regular cycle; N30.01 Acute cystitis with hematuria
CPT/HCPCS: 80048; 81003; 81025; 85025; 99283; J7030